=== PATIENT | male | born 2000 | race Caucasian/White ===

== ENCOUNTER 2023-06-10 14:17 | Emergency (ER) | payer SELFPAY ==
--- NOTE | 2023-06-10 14:29 | XR_ITS ---
FINAL REPORT CLINICAL HISTORY: SMASHED THUMB FINDINGS: Right hand Three views were obtained. There is no acute fracture or dislocation. The joint spaces appear normal. No soft tissue abnormality is identified. IMPRESSION: No acute process. Reviewed, Interpreted and Dictated by Jj Verma III, MD Transcribed by Kiana Aleman Authenticated and [facility]
[2023-06-10 15:30] VITALS: BP 139/86; PULSE 82; RESP 19; TEMP 36.7; O2SAT 99; BMI 20.5
--- NOTE | 2023-06-10 15:50 | EXP.UTC ---
Discharge Plan Disposition Patient Disposition: Home, Self-Care Condition: Good Referrals Follow up/Referrals: Provider,Referral, MD [Primary Care Provider] - See instructions Activity Restrictions/Add. Instructions Additional Instructions/Restrictions: Keep area clean and dry FOllow up with your Family Doctor if needed You will likely loose this fingernail Straight to ER if any life threatening symptoms Clinical Impressions Clinical Impression: Finger injury Qualifiers: Encounter type: initial encounter Laterality: right Qualified Code(s): S69.91XA - Unspecified injury of right wrist, hand and finger(s), initial encounter Instructions Patient Instructions: DI for Nail Bed Injury Discharge ED Provider: Jacinta Becker [facility] [place] General Stated complaint: ao 06/08/23 smashed thumb Mode of Arrival: Ambulatory Source of Information: Patient Limitations: No Limitations Time Seen by Provider: 06/10/23 15:50 Description of Symptoms (Recalled from Triage Doc. by RN): Pt smashed right finder and wants to get it drained. There is blood under the nail bed. 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 Social History Smoking Status: Unknown if ever smoked alcohol intake: never current occupational status: employed Travel in the last 8 weeks: None ROS Obtained: Yes All systems reviewed & no additional complaints except as documented and Yes Systems reviewed as appropriate & no additional complaints except as documented Constitutional Constitutional: Reports system reviewed and no additional complaints, except as documented and Reports as per HPI ENT Ears, Nose, Mouth, and Throat: Reports system reviewed and no additional complaints, except as documented and Reports as per HPI Cardiovascular Cardiovascular: Reports system reviewed and no additional complaints, except as documented and Reports as per HPI Respiratory Respiratory: Reports system reviewed and no additional complaints, except as documented and Reports as per HPI Gastrointestinal Gastrointestingal: Reports system reviewed and no additional complaints, except as documented and as per HPI Musculoskeletal Musculoskeletal: Reports system reviewed and no additional complaints, except as documented, Reports as per HPI and Reports other (smashed right thumb nail) Physical Exam General General appearance: alert and in no apparent distress Respiratory Respiratory exam: Present normal lung sounds bilaterally; Absent respiratory distress or wheezes Cardiovascular Cardiovascular exam: Present regular rate, normal rhythm and normal heart sounds Abdominal Exam Abdominal exam: Present soft and normal bowel sounds; Absent distention or tenderness Expanded Upper Extremity Exam Right: Hand L/R back image: 1. dark discoloration noted under fingernail no active bleeding Neurological Exam Neurological exam: Present alert, oriented X3 and normal gait Medical Decision Making Melvin Inquiry Pt receiving controlled substance: No Melvin was queried for this patient: No Vital Signs: 06/10/23 15:30 Temperature 98.1 F Temperature Source Oral Pulse Rate [Right Radial] 82 Respiratory Rate
[2023-06-10 17:21] VITALS: BP 123/77; PULSE 90; RESP 19; TEMP 36.8
== END 2023-06-10 17:24 | disposition home or self-care (01) ==
PROVIDERS: Emergency Provider Nurse Practitioner
DX: S60.111A Contusion of right thumb with damage to nail, initial encounter (principal); S69.91XA Unspecified injury of right wrist, hand and finger(s), initial encounter; W23.0XXA Caught, crushed, jammed, or pinched between moving objects, initial encounter
CPT/HCPCS: 73130; 99204; 99212; G0463

== ENCOUNTER 2023-09-12 14:11 | Emergency (ER) | payer SELFPAY ==
[2023-09-12 14:14] VITALS: BP 127/79; PULSE 92; RESP 17; TEMP 36.7; O2SAT 98; BMI 20.9
[2023-09-12 14:30] VITALS: BP 128/80; PULSE 80; RESP 20; O2SAT 99
--- NOTE | 2023-09-12 14:54 | ECG_ITS ---
APPROVED REPORT Exam: Resting ECG HR:80 bpm ECG Measurements Heart Rate 80 AXES TN 130 P 58 QRSd 81 QRS 82 QT 370 T 28 QTc 406 Conclusion SINUS RHYTHM NORMAL ECG Electronically signed by : CHRIS MCNEILL, 09/12/2023 21:44:36
--- NOTE | 2023-09-12 14:57 | HMH.EDGENADL ---
Discharge Plan Disposition Patient Disposition: Home, Self-Care Referrals Follow up/Referrals: Provider,Referral, [Primary Care Provider] - See instructions Clinical Impressions Clinical Impression: Minor head injury, Dizziness, Cocaine abuse, Marijuana abuse Instructions Patient Instructions: DI for Syncope in Adults (Fainting), DI for Syncope in Children (Fainting) Discharge ED Provider: Melody Aguilar General Adult HPI <Melody Aguilar MD - Last Filed: 09/12/23 15:14> General Chief complaint: Syncope Stated complaint: AO, Pain in head, fell and was unconscious 20 min Time Seen by Provider: 09/12/23 14:45 Mode of Arrival: Family Vehicle Source of Information: Patient and Significant Other Limitations: No Limitations Description of Symptoms (Recalled from ER Triage Doc. by RN): Pt c/o posterior headache, bruising, swelling & tenderness after fall in the shower. States he was bending over to clean the edge of the shower and the next thing I know I was stnading up and she [friend] was telling me I had fallen . States he did use cocaine and marijuana last night and stayed up late. He reports when he does this his vision is john hazy in the morning . Denies any alcholo use. Denies any dizziness now. There is also bruising, swelling, and tenderness to the side of his distal left foot. He also reports tenderness to left lower back. History of Present Illness HPI narrative: Patient is a 23-year-old male presenting today with multiple complaints. His girlfriend found him minimally responsive in the shower and he believes that he fell and hit his head. This happened after he was smoking marijuana and using cocaine all night long. States that he symptoms feels dizzy after this which is how he currently feels. Denies any nausea vomiting he states he is at his neurologic baseline aside from some dizziness right now. No anticoagulation or antiplatelet agents. His main concern is whether or not he had a concussion today. No significant headache. No neck pain no neurologic focal deficits. Related Data Allergies Allergy/AdvReac Type Severity Reaction Status Date / Time No Known Allergies Allergy Unverified 07/24/23 14:24 PFS <Melody Aguilar MD - Last Filed: 09/12/23 15:14> [facility] Disclaimer: The information contained in this section may have been updated after the patient was seen, as this information can be updated by other users. Social History (Updated 06/10/23 @ 17:13 by Jacinta Becker APRN) Smoking Status: Current every day smoker alcohol intake: never current occupational status: employed Travel in the last 8 weeks: None <Melody Aguilar MD - Last Filed: 09/12/23 15:14> ROS Obtained: Yes All systems reviewed & no additional complaints except as documented Physical Exam <Melody Aguilar MD - Last Filed: 09/12/23 15:14> General General appearance: alert and in no apparent distress Head Head exam: atraumatic and normocephalic Respiratory Respiratory exam: Present normal lung sounds bilaterally Cardiovascular Cardiovascular exam: Present regular rate and normal rhythm Abdominal Exam Abdominal exam: Present soft and distention Extremities Exam Extremities exam: Present normal inspection and full ROM Neurological Exam Neurological exam: Present alert, oriented X3, CN II-XII intact and normal gait; Absent motor sensory deficit Medical Decision Making <Melody Aguilar MD - Last Filed: 09/12/23 15:14> Melvin Inquiry Pt receiving controlled substance: No Vital Signs: 09/12/23 14:14 Temperature 98.0 F Temperature Source Oral Pulse Rate [Right] 92 H Respiratory Rate 17 Blood Pressure [Right Arm] 127/79 Blood Pressure Mean [Right Arm] 95 Blood Pressure Source [Right Arm] Automatic Cuff 02 Sat by Pulse Oximetry 98 Oxygen Delivery Method Room Air Lab Data Lab Results 09/12/23 15:00: WBC 22.5 H*, RBC 4.69, Hgb 14.0 L, Hct 41.4 L, MCV 88.4, MCH 30.0, MCHC 33.9, RDW 13.1, Plt Count 361, MPV 7.5, Neut % (Auto) 12.0 L, Lymph % (Auto) 12.8, [place] % (Auto) 74.8 H, Eos % (Auto) 0.2, Baso % (Auto) 0.3, Neut # (Auto) 2.7, Lymph # (Auto) 2.9, [place] # (Auto) 16.9 H, Eos # (Auto) 0.1, Baso # (Auto) 0.1, Sodium 138, Potassium 3.6, Chloride 104, Carbon Dioxide 25, Anion Gap 12.6, BUN 20, Creatinine 0.80, Estimated Creat Clear 142, Estimated GFR 119, Est GFR ( Amer) 144, Glucose 87, Calcium 9.5, Total Bilirubin 0.5, AST 35, ALT 43, Alkaline Phosphatase 76, Total Creatine Kinase 128, Troponin I < 0.01, Total Protein 7.7, Albumin 5.0, Globulin 2.7, Albumin/Globulin Ratio 1.9 H 09/12/23 15:00 09/12/23 15:00 Orders (Tests/Meds): ED MEDICATIONS Discontinued Medications Generic Name Dose Route Start Last Admin Trade Name Freq PRN Reason Stop Dose Admin Lactated Ringer's 1,000 mls @ 999 mls/hr 09/12/23 15:00 09/12/23 15:31 Lactated Ringer's 1000 Ml Bag IV 09/12/23 16:00 999 mls/hr .Q1H1M NEGIN Administration ORDERS Category Date Time Status CBC w/Auto Diff [Complete Blood Count Auto Diff] Stat Lab 09/12/23 15:00 Results CK [Creatine Kinase] Stat Lab 09/12/23 15:00 Completed CMP [Comprehensive Metabolic Panel] Stat Lab 09/12/23 15:00 Completed Trop I [Troponin I] Stat Lab 09/12/23 15:00 Completed Troponin I Q3H Lab 09/12/23 18:00 Ordered Troponin I Q3H Lab 09/12/23 21:00 Ordered ECG Data Tracing #1: I reviewed this ECG and interpreted as documented below: Ventricular rate of 80 sinus rhythm no acute ischemic changes noted nonspecific ST abnormality in lead III but noncontiguous leads no significant conduction abnormalities noted overall normal EKG Medical Decision Narrative: Patient is a 23-year-old male presenting today with dizziness and what sounds like a possible follow-up with a head injury and possibly concussion however he is GCS of 15 normal neurologic exam right now. He is Head [place] CT head negative this does not concerning for a clinically significant brain injury that would require neurosurgical intervention. He is also Nexus negative. Given the fact that he has been doing drugs all night long and feels dizzy I want to check basic blood work including electrolytes and a CK and give IV fluid he was down for an unknown period of time could possibly have rhabdomyolysis but does not complain of significant muscle pain at the moment. Care will be transitioned to Dr. Tony Guo at 3 PM for further evaluation and management. <Tony Guo MD - Last Filed: 09/12/23 16:21> Vital Signs: 09/12/23 14:14 Temperature 98.0 F Temperature Source Oral Pulse Rate [Right] 92 H Respiratory Rate 17 Blood Pressure [Right Arm] 127/79 Blood Pressure Mean [Right Arm] 95 Blood Pressure Source [Right Arm] Automatic Cuff 02 Sat by Pulse Oximetry 98 Oxygen Delivery Method Room Air Lab Data Lab Results 09/12/23 15:00: WBC 22.5 H*, RBC 4.69, Hgb 14.0 L, Hct 41.4 L, MCV 88.4, MCH 30.0, MCHC 33.9, RDW 13.1, Plt Count 361, MPV 7.5, Neut % (Auto) 12.0 L, Lymph % (Auto) 12.8, [place] % (Auto) 74.8 H, Eos % (Auto) 0.2, Baso % (Auto) 0.3, Neut # (Auto) 2.7, Lymph # (Auto) 2.9, [place] # (Auto) 16.9 H, Eos # (Auto) 0.1, Baso # (Auto) 0.1, Sodium 138, Potassium 3.6, Chloride 104, Carbon Dioxide 25, Anion Gap 12.6, BUN 20, Creatinine 0.80, Estimated Creat Clear 142, Estimated GFR 119, Est GFR ( Amer) 144, Glucose 87, Calcium 9.5, Total Bilirubin 0.5, AST 35, ALT 43, Alkaline Phosphatase 76, Total Creatine Kinase 128, Troponin I < 0.01, Total Protein 7.7, Albumin 5.0, Globulin 2.7, Albumin/Globulin Ratio 1.9 H Orders (Tests/Meds): ED MEDICATIONS Discontinued Medications Generic Name Dose Route Start Last Admin Trade Name Freq PRN Reason Stop Dose Admin Lactated Ringer's 1,000 mls @ 999 mls/hr 09/12/23 15:00 09/12/23 15:31 Lactated Ringer's 1000 Ml Bag IV 09/12/23 16:00 999 mls/hr .Q1H1M NEGIN Administration ORDERS Category Date Time Status CBC w/Auto Diff [Complete Blood Count Auto Diff] Stat Lab 09/12/23 15:00 Results CK [Creatine Kinase] Stat Lab 09/12/23 15:00 Completed CMP [Comprehensive Metabolic Panel] Stat Lab 09/12/23 15:00 Completed Trop I [Troponin I] Stat Lab 09/12/23 15:00 Completed Troponin I Q3H Lab 09/12/23 18:00 Ordered Troponin I Q3H Lab 09/12/23 21:00 Ordered Medical Decision Narrative: Patient is a 23-year-old male presenting today with dizziness and what sounds like a possible follow-up with a head injury and possibly concussion however he is GCS of 15 normal neurologic exam right now. He is Head [place] CT head negative this does not concerning for a clinically significant brain injury that would require neurosurgical intervention. He is also Nexus negative. Given the fact that he has been doing drugs all night long and feels dizzy I want to check basic blood work including electrolytes and a CK and give IV fluid he was down for an unknown period of time could possibly have rhabdomyolysis but does not complain of significant muscle pain at the moment. Care will be transitioned to Dr. Tony Guo at 3 PM for further evaluation and management. Sari: I assume primary responsibility for this patient after signout from previous physician. On my evaluation, patient resting comfortably. Stating he feels much better. Guidance and resources regarding cessation of illicit drugs was offered, they were appreciative. Because patient at baseline without signs or symptoms of clinical decompensation, deemed appropriate for discharge. Results were relayed to patient who voiced understanding and were agreeable to outpatient management and follow up. At the time of discharge the patient was hemodynamically stable, tolerating PO, and mobilizing appropriately. Critical Care <Melody Aguilar MD - Last Filed: 09/12/23 15:14> Critical Care Time Critical Care Time: No
[2023-09-12 15:00] VITALS: BP 129/75; PULSE 84; RESP 22; O2SAT 99
--- NOTE | 2023-09-12 15:00 | PC.NURSE ---
Went in to do amd EKG on the pt and when finished asked if they needed anything. pt had no needs at this time
[2023-09-12 15:21] LABS: Alanine Aminotransferase 43 U/L (12-78); Albumin/Globulin Ratio 1.9 (1.1-1.8); Alkaline Phosphatase 76 U/L (38-126); Anion Gap 12.6 mEq/L (5-15); Aspartate Amino Transferase 35 U/L (17-59); Bilirubin,Total 0.5 mg/dl (0.2-1.3); Blood Urea Nitrogen 20 mg/dl (9-20); Calcium 9.5 mg/dl (8.4-10.2); Carbon Dioxide 25 mmol/L (22.0-30.0); Chloride 104 mmol/L (98-107); Creatine Kinase 128 U/L (55-170); Creatinine Clearance Estimated 142 mL/min (50-200); Estimated Glomerular Filt Rate 119 ml/min (>60); GFR (African American) 144 ML/MIN (>60); Globulin 2.7 g/dL (1.3-3.2); Glucose 87 mg/dl (74-100); Potassium 3.6 mmoL/L (3.5-5.1); Sodium 138 mmol/L (136-145); Total Protein,Serum 7.7 g/dl (6.3-8.2)
[2023-09-12 15:26] LABS: Basophils # 0.1 K/mm3 (0-0.2); Basophils % 0.3 % (0.1-2.0); Eosinophils # 0.1 K/mm3 (0.0-0.4); Eosinophils % 0.2 % (0.1-12.0); Hematocrit 41.4 % (42.0-52.0); Lymphocytes # 2.9 K/mm3 (0.7-4.5); Lymphocytes % 12.8 % (10-50); Mean Corpuscular HGB Conc 33.9 g/dL (31.8-35.4); Mean Corpuscular Volume 88.4 fl (80-94); Mean Platelet Volume 7.5 fl (7.4-10.4); Monocytes # 16.9 K/mm3 (0.1-1.0); Monocytes % 74.8 % (1.7-9.3); Neutrophils # 2.7 K/mm3 (1.8-7.8); Platelet Count 361 K/mm3 (142-424); Red Blood Count 4.69 M/mm3 (4.60-6.20); Red Cell Distribution Width 13.1 % (11.5-17.5); White Blood Count 22.5 K/mm3 (4.8-10.8)
[2023-09-12 15:29] LABS: MANUAL DIFFERENTIAL MANUAL DIFFERENTIAL (MANUAL DIFF)
[2023-09-12 15:30] VITALS: BP 125/68; PULSE 74; RESP 20; O2SAT 100
[2023-09-12] MEDS: LACTATED RINGERS 1000ML 1,000 ML 999 ML IV (15:31)
[2023-09-12 15:35] LABS: Troponin I < 0.01 ng/ml (0.00-0.034)
[2023-09-12 16:00] VITALS: BP 127/99; PULSE 77; RESP 22; O2SAT 100
--- NOTE | 2023-09-12 16:20 | PC.NURSE ---
DR MCNEILL AT BEDSIDE
[2023-09-12 16:30] VITALS: BP 127/99; PULSE 75; RESP 18; TEMP 36.8; O2SAT 100
[2023-09-12 16:56] LABS: Lymphocytes % 14 % (10-50); Monocytes % 16 % (2-9); Neutrophils % 70 % (42-76); Total Cells Counted 100
[2023-09-12 16:58] LABS: Platelet Estimate Normal; RBC Morphology Normal
== END 2023-09-12 16:30 | disposition home or self-care (01) ==
PROVIDERS: Emergency Provider Student in an Organized Health Care Education/Training Program
DX: S09.8XXA Other specified injuries of head, initial encounter (principal); F14.929 Cocaine use, unspecified with intoxication, unspecified; F12.929 Cannabis use, unspecified with intoxication, unspecified; D72.829 Elevated white blood cell count, unspecified; F17.210 Nicotine dependence, cigarettes, uncomplicated; W19.XXXA Unspecified fall, initial encounter
CPT/HCPCS: 80053; 82550; 84484; 85007; 85025; 93005; 96360; 99284